=== PATIENT | female | born 1990 | race African-American/Black ===

== ENCOUNTER 2024-04-30 18:04 | Emergency (ER) | payer BC ==
[~2024-04-30] VITALS: Ht 165.1 cm; Wt 86.2 kg
[2024-04-30 18:53] VITALS: O2SAT 99
== END 2024-04-30 21:05 | disposition left against medical advice (07) ==
LOC: ER 18:04
DX: F41.9 Anxiety disorder, unspecified (principal); Z53.21 Procedure and treatment not carried out due to patient leaving prior to being seen by health care provider
CPT/HCPCS: A4606; A4663